=== PATIENT | female | born 1945 | race Caucasian/White ===

== ENCOUNTER 2020-12-05 12:25 | Inpatient (IN) | payer OTHER ==
[~2020-12-05] VITALS: Ht 160 cm; Wt 78.3 kg
[2020-12-05] VITALS (233 sets, daily range): BP systolic 93–123; BP diastolic 74–90; PULSE 125–141; TEMP 97.8–98.3; O2SAT 88–100
[~2020-12-05 12:25] MED LIST: ATIVAN 1MG T1 MG/TAB PO; BUSPAR DIVIDOSE15 MG PO; CYMBALTA 60MG60 MG PO; DESYREL 100MG100 MG PO; ENABLEX 7.5MG7.5 MG PO; EXELON9.5 MG/24 TD; NEURONTIN300 MG/CAP PO; NORVASC 5MG5 MG/TAB PO; OXYCONTIN 10MG10 MG PO; PROVIGIL200 MG PO; REQUIP XL2 MG PO; ULTRAM 50MG TAB50 MG PO
--- NOTE | 2020-12-05 14:00 | NUR ---
RECEIVED REPORT FROM LUNA STRICKLAND AT [facility]. AWATING ARRIVLA OF PT TO ICU 8.
--- NOTE | 2020-12-05 14:53 | NUR ---
PT ARRIVES VIA EMS ON STRETCHER ON 4L VIA NC. HR NOTED 110-170s. PT ASSISTED TO ICU BED. PLACED ON BEDSIDE CONTINUOUS MONITOR. CALL LIGHT WITHIN REACH. FC PATENT AND DRAINING TO GRAVITY.
--- NOTE | 2020-12-05 15:03 | NUR ---
NOTIFIED DR DALE OF PT'S ARRIVAL AND CURRENT HR. PHYSICIAN STATES TO SWITCH OVER TO AMIO GTT AND GIVE BOLUS, SEE MAR. PT EDUCATED ON MEDICATION. VERBALIZED UNDERSTANDING AND AGRESS TO TREATMENT PLAN.
--- NOTE | 2020-12-05 15:25 | NUR ---
DR DALE AT BEDSIDE FOR ASSESSMENT. NEW ORDERS RECEIVED.
--- NOTE | 2020-12-05 15:35 | NUR ---
DR ALEJANDRE AT BEDSIDE FOR ASSESSMENT. PADMA, WITH US, PERFORMING ECHO AT BEDSIDE AND ASSESSED BY DR ALEJANDRE. PT'S DAUGHTER BROUGHT TO BEDSIDE. DAUGHTER CONCERN ABOUT AMIO D/T GRANDSON WHO IS IN [employer] STATES TO NOT LET PT BE ON IT BECAUSE OF BAD SOIL TESTER AFFECTS. DR DALE AND Jade ALEJANDRE AWARE OF FAMILY'S CONCERN. DAUGHTER APPEARS TO CALM DOWN AFTER EXPLAINATION BY DR ALEJANDRE.
[2020-12-05 16:00] LABS: MAGNESIUM 2.2 mg/dL (1.6-2.3)
[2020-12-05] MEDS ORDERED: RESTASIS MULTI5.5 ML OP (16:09)
[2020-12-05] MEDS ORDERED: ULTRAM 50MG TAB50 MG PO (16:10)
[2020-12-05] MEDS ORDERED: PLAVIX 75MG TAB75 MG PO (16:10)
[2020-12-05] MEDS ORDERED: CADUET 5 MG-201 TAB PO (16:12)
[2020-12-05] MEDS ORDERED: CELEBREX 1100 MG/CAP PO (16:12)
[2020-12-05 16:13] LABS: TROPONIN-I < 0.012 ng/mL (0.000-0.035)
[2020-12-05] MEDS ORDERED: CYMBALTA 30MG30 MG PO (16:13)
[2020-12-05] MEDS ORDERED: DITROPAN 5MG TAB5 MG PO (16:14)
[2020-12-05] MEDS ORDERED: ASPIRIN 81M81 MG/TA2 PO (16:15)
[2020-12-05] MEDS ORDERED: SYNTHROID 0.0.025 MG PO (16:15)
[2020-12-05] MEDS ORDERED: LEVOXYL0.025 MG PO (16:16)
[2020-12-05] MEDS ORDERED: CENTRUM SILVER1 TAB PO (16:17)
[2020-12-05] MEDS ORDERED: CITRACAL + D CA1 TAB PO (16:18)
[2020-12-05] MEDS ORDERED: TYLENOL PM EXTR1 TA1 PO (16:19)
[2020-12-05] MEDS ORDERED: ROXICODONE 55 MG/TAB PO (16:19)
[2020-12-05] MEDS ORDERED: MIRALAX PA17 GM/Dose PO (16:20)
[2020-12-05] MEDS ORDERED: BENEFIBER PO (16:21)
--- NOTE | 2020-12-05 18:14 | NUR ---
CALLED KING CUMMINS TO ASK ABOUT PT EATING TONIGHT AND PT'S CURRENT HR 110-150. PROVIDER REQUESTS RN TO CALL DR ALEJANDRE TO ENSURE HIS POC. PAGED DR ALEJANDRE AWAITING RESPONSE.
--- NOTE | 2020-12-05 18:55 | NUR ---
ATTEMPTED TO PAGE DR ALEJANDRE AGAIN. AWAITING FOR RESPONSE STILL.
--- NOTE | 2020-12-05 19:00 | NUR ---
Received report from LUNA Veras.
--- NOTE | 2020-12-05 19:15 | NUR ---
Patient resting quietly in bed watching television. Patient's HR ranging 130-150s; remains in AFIB. Other vitals within normal limits. Patient denies any pain, discomfort, or shortness of breath. Patient states she becomes more short of breath with movement or activity. Requesting something to eat/drink at this time. Will contact Dr. Reardon for further orders. No other needs noted.
--- NOTE | 2020-12-05 19:45 | NUR ---
Paged Dr. Reardon at 193. Received callback at 1940. Dr. Reardon notified of patient's HR ranging 130s-150s in AFIB. Patient requesting something to eat at this time. Received orders to administer an additional 150mg amiodarone bolus now, and then to continue drip at 1mg/min throughout the night. To notify if patient's HR sustains above 150. Patient allowed to eat supper, but should remain NPO after midnight.
[2020-12-06] VITALS (1332 sets, daily range): BP systolic 109–130; BP diastolic 70–91; PULSE 71–129; TEMP 97.7–98.3; O2SAT 84–100
[2020-12-06 05:28] LABS: BASO # 0.1 (0.0-0.2); BASO % 0.9 % (0.0-2.0); EOS % 0.1 % (0-4.0); GRAN # 4.6 (1.4-6.5); GRAN % 62.1 % (42.2-75.2); HEMATOCRIT 37.3 % (37.0-47.0); HEMOGLOBIN 12.4 g/dl (12.5-16.0); LYMPH # 2.2 (1.2-3.4); LYMPH % 29.2 % (20.0-51.0); MEAN CELL VOLUME 91 fl (80.0-100.0); MEAN CORPUSCULAR HEMOGLOBIN 30 pg (27.0-31.0); MEAN CORPUSCULAR HGB CONC 33 g/dl (33.0-37.0); MEAN PLATELET VOLUME 10.5 fl (7.4-10.4); MONO # 0.6 (0.1-0.6); MONO % 7.4 % (1.7-9.3); PLATELET COUNT 230 K/mm3 (130-400); RED BLOOD COUNT 4.12 M/mm3 (4.10-5.30); REDCELL DISTRIBUTION WIDTH-CV 13.2 % (11.5-14.5)
[2020-12-06 05:40] LABS: ANION GAP 7 mmol/L (7-16); BLOOD UREA NITROGEN 17 mg/dL (7-17); CALCIUM 8.7 mg/dL (8.4-10.2); CARBON DIOXIDE 28 mmol/L (22-30); CHLORIDE 103 mmol/L (98-107); CREATININE, serum 0.99 (0.52-1.25); GLUCOSE 113 mg/dL (74-106); MAGNESIUM 2.1 mg/dL (1.6-2.3); POTASSIUM 3.8 mmol/L (3.4-5.0); SODIUM 138 mmol/L (137-145)
[2020-12-06 05:51] LABS: TROPONIN-I < 0.012 ng/mL (0.000-0.035)
--- NOTE | 2020-12-06 10:50 | NUR ---
1050- Time out performed with Dr. Marie, anesthesia, game technician and RN. ARDEN and cardioversion performed with all bed side.
--- NOTE | 2020-12-06 12:38 | NUR ---
Clinical Field Specialist prayed and offered support with patient while family was in room.
[2020-12-07] VITALS (1314 sets, daily range): BP systolic 123–143; BP diastolic 62–101; PULSE 96–117; TEMP 98–98.7; O2SAT 76–100
--- NOTE | 2020-12-07 09:40 | NUR ---
Patient had an episode of emesis after eating breakast. Patient stated her stomach started to feel upset immediately after eating. PRN order for Zofran received from hospitalist. Will continue to monitor.
--- NOTE | 2020-12-07 14:23 | NUR ---
Resting in bed; no concerns or complaints at this time.
--- NOTE | 2020-12-07 17:37 | NUR ---
Patient reports "not feeling well" states that she feels dizzy and lightheaded. BP and 02 WNL. Heart rate in the low 100's which has been unchanged this shift. Has PRN xanax for anxiety. Asked patient if she felt this could be due to anxiety. Patient stated "possibly" and requested to try the xanax. Will continue to monitor.
--- NOTE | 2020-12-07 18:57 | NUR ---
Report given to LUNA Marquez. Patient care transfered.
[2020-12-08] VITALS (1179 sets, daily range): BP systolic 91–131; BP diastolic 66–97; PULSE 79–118; TEMP 97.2–98.7; O2SAT 67–100
[2020-12-08 06:19] LABS: CALCIUM 9.2 mg/dL (8.4-10.2); CREATININE, serum 0.91 (0.52-1.25); POTASSIUM 4.1 mmol/L (3.4-5.0)
--- NOTE | 2020-12-08 07:45 | NUR ---
Resting in bed at this time. Denies any pain or dizziness or lightheadedness this morning. Reports some anxiety about the scheduled heart cath today but refused offer for prn anti-anxiety medication. Patient stable at this time; will continue to monitor.
--- NOTE | 2020-12-08 10:16 | NUR ---
SW met with the patient, her daughter (Donna Ortega, ph#[phone]), and granddaughter (Maryellen) to discuss discharge plan. The patient lives in [place] with her , Romeo (ph#[phone]). She reports independence with ADLs and has a cane and walker available if needed. The patient's primary care provider is Katherine Edgar NP in [place] and she receives her medications from [facility]. She reports no difficulties obtaining her meds. The patient's daughter provided SW with her DPOA-HC. SW placed the document in the patient's chart. The patient's DPOA-HC is her . The alternate is her daughter, Donna Ortega. The patient plans to return home with her upon discharge. SW follow as needed. *Discharge plan: home with and family support*
--- NOTE | 2020-12-08 12:04 | NUR ---
First visit from the patrol captain. No needs right now.
--- NOTE | 2020-12-08 13:08 | NUR ---
Patient is on lasix and has had decreased urine output. Hospitalist notified and ordered to hold lasix dose for tomorrow. Will continue to monitor.
--- NOTE | 2020-12-08 13:31 | NUR ---
Transfered from Department to the cath lab technologist with LUNA Ritter. Patient stable upon transfer.
--- NOTE | 2020-12-08 14:45 | NUR ---
Patient stable after returning from heart cath. Slightly drowsy but awake and alert. Radial site assessed; intact with no hemoatoma formation noted. Will continue to monitor.
--- NOTE | 2020-12-08 17:17 | NUR ---
Patient reporting some mid sternal chest "heaviness". Does not appear in any distress; VS stable. Difficult to obtain a clear answer from patient but states it is a 5 or 6 out of 10 but "not that bad". PRN nitro administered with partial resolution and pain down to 3 or 4. Patient denied offer for second nitro or PRN tylenol. Currenlty eating dinner. Will continue to monitor.
[2020-12-09] VITALS (515 sets, daily range): BP systolic 98–140; BP diastolic 26–80; PULSE 45–114; TEMP 97.2–98.1; O2SAT 79–100
--- NOTE | 2020-12-09 01:10 | NUR ---
NOTIFIED VIA DANILO, TELEMETRY REGARDING A 5 SECOND FOLLOWED BY A 2 SECOND PAUSE. BRADYCARDIC FOLLOWING FOR A MINUTE OR 2. WILL NOTIFY KING BENTLEY.
--- NOTE | 2020-12-09 04:12 | NUR ---
NOTICED PATIENT DROP INTO THE 30s AGAIN. WENT IN TO ASSESS PATIENT. SHE STATED THAT SHE WAS JUST SLEEPY AND VERY TIRED. ALSO STATED A HEAVY FEELING IN THE CHEST AND SOME SOB ON EXERTION. CALLED KING BENTLEY TO NOTIFY AND CALLED RESPIRATORY THERAPY TO GET A STAT EKG. ORDERS RECEIVED FOR ATROPINE. GAVE 2 DOSES AND HR CAME UP TO 50s AND SUSTAINED. HAVE 3RD DOSE ON STANDBY NEEDED.
[2020-12-09 06:06] LABS: CALCIUM 9.1 mg/dL (8.4-10.2); CREATININE, serum 1.01 (0.52-1.25); MAGNESIUM 2.5 mg/dL (1.6-2.3); POTASSIUM 4.1 mmol/L (3.4-5.0)
--- NOTE | 2020-12-09 07:10 | NUR ---
RECEIVED REPORT FROM LUNA MURPHY. PT TEARFUL AT THIS TIME, SEE MAR. ATTEMPTED TO HELP TP CALM, SHE DOES BRIEFLY. FC PATENT AND DRAINING TO GRAVITY. CALL LIGHT WITHIN REACH. VSS. HR 49.
--- NOTE | 2020-12-09 08:20 | NUR ---
DR ALEJANDRE AT BEDSIDE FOR ASSESSMENT. NOTIFIED PHYSICIAN OF DIGOXIN LEVEL, X2 DOSES OF ATROPINE LAST NIGHT, HR CONTINUES TO BE IN THE 40s AND APPEARS JUNCTIONAL, PT VERY DROWSY, AND PT'S C/O LEGS "CRAMPY" FEELING. PHYSICIAN STATES HOLD ALL AM MEDS AND NPO AT THIS TIME FOR POSSIBLE PACEMAKER TODAY. PHYSICIAN MADE AWARE THAT PT DID ALREAADY EAT SOME BREAKFAST. PHYSICIAN STATES IT IS OK BUT TO MAKE NPO STARTING NOW. PT MADE AWARE.
--- NOTE | 2020-12-09 08:50 | NUR ---
DR ALEJANDRE BACK AT BEDSIDE DISCUSSING PACEMAKER PLACEMENT WITH PT. PT MOSTLY AAOX3 BUT APPEARS VERY DROWSY AND NEEDS REDIRECTION OCCASSIONALLY. NOTIFIED DHEERAJ WHO IS FIRST DPOA OF PROCEDURE BY PHYSICIAN AND RN. CONSENT SIGNED.
--- NOTE | 2020-12-09 09:15 | NUR ---
PT TO CATH PROCEDURE AT THIS TIME.
--- NOTE | 2020-12-09 09:50 | NUR ---
SEE MERGE DOCUMENTATION FOR MEDICATION ADMINISTRATION TIMES AND INTRA/POST PROCEDURE SEDATION ASSESSMENTS.
--- NOTE | 2020-12-09 10:30 | NUR ---
REPORT GIVEN TO LUNA DELEON. ALL BELONGINGS TAKEN TO [facility] ALONG WITH FAMILY WAITING IN THE ICU WAITING ROOM. LUNA FOWLER IN HYDRAULIC SPINNER AWARE PT IS TRANSFERRING STRAIGHT TO [facility] AFTER PROCEDURE.
[2020-12-10] VITALS (7 sets, daily range): BP systolic 82–139; BP diastolic 45–85; PULSE 61–77; TEMP 97.5–99.1
--- NOTE | 2020-12-10 07:00 | NUR ---
Report with LUNA Meraz. Pt resting in bed, assisted with boosting up highter in the bed, grimacing with movement. Pt A&O x 3. Dressing over left chest site CDI. No needs reported. Call light in reach.
[2020-12-10 07:01] LABS: BASO # 0.1 (0.0-0.2); BASO % 0.4 % (0.0-2.0); GRAN # 12.4 (1.4-6.5); GRAN % 78.9 % (42.2-75.2); LYMPH # 1.8 (1.2-3.4); LYMPH % 11.4 % (20.0-51.0); MEAN CELL VOLUME 87 fl (80.0-100.0); MEAN CORPUSCULAR HGB CONC 35 g/dl (33.0-37.0); MEAN PLATELET VOLUME 10.7 fl (7.4-10.4); MONO # 1.4 (0.1-0.6); MONO % 8.7 % (1.7-9.3); PLATELET COUNT 238 K/mm3 (130-400); RED BLOOD COUNT 3.09 M/mm3 (4.10-5.30); REDCELL DISTRIBUTION WIDTH-CV 13.6 % (11.5-14.5)
[2020-12-10 07:04] LABS: HEMATOCRIT 26.8 % (37.0-47.0); HEMOGLOBIN 9.3 g/dl (12.5-16.0); MEAN CORPUSCULAR HEMOGLOBIN 30 pg (27.0-31.0)
[2020-12-10 07:13] LABS: CALCIUM 8.6 mg/dL (8.4-10.2); CREATININE, serum 1.52 (0.52-1.25); POTASSIUM 4.5 mmol/L (3.4-5.0)
--- NOTE | 2020-12-10 08:30 | NUR ---
Assessment complete, unremarkable and unchanged from time of report. Pt reports pain is controlled at this time. Saline lock IV to right AC patent without s/s of complications. Pt's daughter at bedside. No further needs reported. Call light in reach.
--- NOTE | 2020-12-10 10:30 | NUR ---
PT reports to nurse pt c/o dizziness when standing. BP assessed with positive orthostatic hypotension present. Provider has already been notified.
[2020-12-10 12:36] LABS: MUCOUS Present /lpf; PH 5 (5-8); SQUAMOUS EPITHELIAL 0-2 /hpf; URINE APPEARANCE Cloudy; URINE BACTERIA Rare /hpf; URINE BILIRUBIN Negative (NEGATIVE); URINE BLOOD Negative (NEGATIVE); URINE COLOR Amber; URINE GLUCOSE Negative (NEGATIVE); URINE KETONE Negative (NEGATIVE); URINE LEUKOCYTE ESTERASE 1+ (NEGATIVE); URINE NITRATE Negative (NEGATIVE); URINE PROTEIN(semi-quant) Negative (NEGATIVE); URINE UROBILINOGEN Negative (NEGATIVE)
[2020-12-10 12:38] LABS: COLLECTION METHOD CLEAN CATCH
[2020-12-10 13:02] LABS: TSH w REFLEX 5.23 uIU/mL (0.465-4.680)
[2020-12-10 14:39] LABS: HEMATOCRIT 22.9 % (37.0-47.0)
--- NOTE | 2020-12-10 16:43 | NUR ---
Lead Quality Control Technician attended clinical rounds with the team. Speech consult to be ordered. SW followed up with patient after rounds and her daughter, Donna is at bedside. SW discussed home health and it's benefits, however patient feels she does not need HH services at this time. Patient's daughter asked for a note from Hospitalist for her employer. SW provided note which advised patient was hospitalized and the admission date.
--- NOTE | 2020-12-10 17:30 | NUR ---
Pt resting in bed, reports discomfort across chest and soreness in shoulder, refuses medication at this time d/t wanting to wait for bedtime. Ice pack offered and pt agreeable and appreciative of ice pack over pacemaker site. Pt's family at bedside with questions which are answered to the best of this nurse's ability. Call light in reach.
--- NOTE | 2020-12-10 19:25 | NUR ---
Report to LUNA Hickey.
[2020-12-11] VITALS (9 sets, daily range): BP systolic 96–138; BP diastolic 41–78; PULSE 59–67; TEMP 97.8–98.7
--- NOTE | 2020-12-11 01:04 | NUR ---
Patient assessed around 2125. Alert and oriented x 4, but does get confused at this time. Reported level 4 pain to pacemaker site. Given scheduled Ultram. Peripheral IV to right AC with fluids running per orders. Denies having SOB and dyspnea. LS CTA. Respirations even and unlabored. HRR. Telemetry in place. Dressing to left chest from pacemaker site is CDI. Capillary refill less than 3 seconds. Non-tenting skin turgor. BSAx4. Abdomen soft and non-tender. No edema. Voices no questions, needs, or concerns at this time. Reminded that she is to be NPO after midnight for EGD tomorrow. Voiced understanding. Resting in bed with call light within reach.
--- NOTE | 2020-12-11 06:23 | NUR ---
Patient received PRN Xanax and Roxicodone for pain and anxiety once this shift. When she had woken up, patient was yelling out in pain and anxious. Talked to patient for while and repositioned, then offered medication. Medication was effecive. IV fluids continue per orders. Voices no questions, needs, or concerns at this time. Resting in bed with call light within reach.
[2020-12-11 06:42] LABS: CALCIUM 8.1 mg/dL (8.4-10.2); CREATININE, serum 1.49 (0.52-1.25); POTASSIUM 4.5 mmol/L (3.4-5.0)
[2020-12-11 07:12] LABS: MEAN CELL VOLUME 87 fl (80.0-100.0); MEAN CORPUSCULAR HGB CONC 36 g/dl (33.0-37.0); MEAN PLATELET VOLUME 10.7 fl (7.4-10.4); PLATELET COUNT 166 K/mm3 (130-400); RED BLOOD COUNT 2.22 M/mm3 (4.10-5.30); REDCELL DISTRIBUTION WIDTH-CV 14.2 % (11.5-14.5)
[2020-12-11 07:15] LABS: HEMATOCRIT 19.4 % (37.0-47.0); MEAN CORPUSCULAR HEMOGLOBIN 31 pg (27.0-31.0)
[2020-12-11 07:21] LABS: HEMOGLOBIN 6.9 g/dl (12.5-16.0)
--- NOTE | 2020-12-11 09:14 | NUR ---
Pt awake and alert upon entry to room, family in room. Steel Post Installer Supervisor C/O pain at this time. Shift assessments complete, left Pt call light in reach, bed in lowest position, needs met.
[2020-12-11 14:25] LABS: MUCOUS Present /lpf; SQUAMOUS EPITHELIAL 0-2 /hpf; URINE BACTERIA None Seen /hpf
[2020-12-11 21:11] LABS: HEMATOCRIT 22.5 % (37.0-47.0); HEMOGLOBIN 7.8 g/dl (12.5-16.0)
[2020-12-11 22:32] LABS: PH 6 (5-8); URINE APPEARANCE Hazy; URINE BACTERIA Rare /hpf; URINE BILIRUBIN Negative (NEGATIVE); URINE BLOOD 2+ (NEGATIVE); URINE COLOR Yellow; URINE GLUCOSE Negative (NEGATIVE); URINE KETONE Negative (NEGATIVE); URINE LEUKOCYTE ESTERASE 3+ (NEGATIVE); URINE NITRATE Negative (NEGATIVE); URINE PROTEIN(semi-quant) Negative (NEGATIVE); URINE UROBILINOGEN Negative (NEGATIVE)
[2020-12-11 22:42] LABS: COLLECTION METHOD CLEAN CATCH
[2020-12-12 00:18] VITALS: BP 126/41; PULSE 63; TEMP 97.9
--- NOTE | 2020-12-12 00:20 | NUR ---
Patient assessed around 1909. Blood transfusion completed at that time, and tolerated well. Complaining of level 9 pain to bladder. Given scheduled Ultram at that time. Family in with patient and voiced concerns regarding patient having confusion at night and being far away from nurse's station. Also concerned that patient will bell to go to the bathroom and not wait for help and fall. Patient moved from room 352 to room 313, closer to nurse's station. High fall risk precuations remain in place. Peripheral INT to right AC leaking, and taken out. INT to left AC flushed. Fluids running per orders and site is without redness, warmth, swelling, and pain. Denies having SOB and dyspnea. LS CTA. Respirations even and unlabored. On oxygen at 1 L/min via NC. HRR. Telemetry in place. Capillary refill less than 3 seconds. Non-tenting skin turgor. BSAx4. Abdomen soft and non-tender. No edema. Patient on bowel prep, tolerating well. Did receive PRN Zofran once. Stools watery, but not clear yet. Family very concerned regarding pain to bladder. Called ACETONE RECOVERY WORKER. Order for Ditropan, and to D/C tyler. Took out tyler. Also given PRN Roxicodone with Ditropan. Patient at this time is denying having pain and discomfort. Has been able to void, and new UA taken to lab. Patient resting in bed with call light within reach.
[2020-12-12 05:11] VITALS: BP 133/50; PULSE 59; TEMP 97.3
--- NOTE | 2020-12-12 05:36 | NUR ---
Patient has been getting up to have BMs throughout the night. Has drank all of the bowel prep, but stools continue to be liqud but not clear at this time. Was complaining of severe pain to left pacemaker/shoulder site. Given PRN Roxicodone and ice to area, which was not effective. Given PRN Fentanyl for pain, which was effective. Voices no questions, needs, or concerns at this time. Resting in bed with call light within reach.
[2020-12-12 08:24] VITALS: BP 137/45; PULSE 61; TEMP 98.1
--- NOTE | 2020-12-12 08:28 | NUR ---
Pt sleeping upon entry to room easily awakened, has C/O pain on left side. checked area noted and found large fresh bruising on left side of breast, area warm and tender to touch. shift assessments complete, left Pt call light in reach, bed in lowest position.
[2020-12-12 12:39] VITALS: BP 115/43; PULSE 59; TEMP 97.9
[2020-12-12 13:03] LABS: HEMATOCRIT 21.1 % (37.0-47.0); HEMOGLOBIN 7.1 g/dl (12.5-16.0)
[2020-12-12 13:57] LABS: IRON,SERUM 47 ug/dL (35-150)
[2020-12-12 14:06] LABS: TOTAL IRON BINDING CAPACITY 301 ug/dL (265-497)
[2020-12-12 16:06] VITALS: BP 107/75; PULSE 63; TEMP 98.1
--- NOTE | 2020-12-12 16:14 | NUR ---
Automobile Service Station Mechanic met with patient and her family to review discharge planning. SW reviewed OT recommendation for post acute rehab. Patient does not want to go anywhere for rehab, however is open to Home Health services. Patient would like to use [facility]. If [facility] cannot take, [facility] would be second preference. CAMMY contacted [facility] and faxed referral. CAMMY was advised by staff at [facility] that they serve patient's address. Discharge Plan: Home with [facility]
[2020-12-12 19:56] VITALS: BP 125/42; PULSE 60; TEMP 98.7
[2020-12-13 00:32] VITALS: BP 107/44; PULSE 61; TEMP 98.4
[2020-12-13 04:57] VITALS: BP 124/64; PULSE 87; TEMP 98.3
--- NOTE | 2020-12-13 05:31 | NUR ---
PATIENT HAD QUIET NIGHT, UP TO BR X1, AWAKE FOR MEDICATIONS. BRUISE UNDER L ARMPIT AND DOWN L SIDE SEEMS TO CAUSE PATIENR A LOT OF PAIN. ROXICODONE GIVEN 3 TIMES THIS SHIFT AT 1940, 0016 AND 0520. NO OTHER NEEDS OR CONCERNS VOICED THIS SHIFT.
[2020-12-13 06:33] LABS: BASO % 0.5 % (0.0-2.0); EOS % 0.2 % (0-4.0); GRAN # 4.8 (1.4-6.5); GRAN % 71.5 % (42.2-75.2); LYMPH # 1.1 (1.2-3.4); LYMPH % 17.2 % (20.0-51.0); MEAN CORPUSCULAR HGB CONC 34 g/dl (33.0-37.0); MONO # 0.7 (0.1-0.6); MONO % 9.8 % (1.7-9.3); PLATELET COUNT 137 K/mm3 (130-400); RED BLOOD COUNT 2.23 M/mm3 (4.10-5.30); REDCELL DISTRIBUTION WIDTH-CV 15.5 % (11.5-14.5)
[2020-12-13 06:41] LABS: HEMATOCRIT 20.9 % (37.0-47.0); MEAN CELL VOLUME 94 fl (80.0-100.0); MEAN CORPUSCULAR HEMOGLOBIN 31 pg (27.0-31.0)
[2020-12-13 06:51] LABS: ALBUMIN 2.7 gm/dL (3.5-5.0); BILIRUBIN,TOTAL 1.2 mg/dL (0.0-1.0); CALCIUM 7.5 mg/dL (8.4-10.2); CREATININE, serum 0.82 (0.52-1.25); POTASSIUM 3.4 mmol/L (3.4-5.0); TOTAL PROTEIN 5.4 gm/dL (6.4-8.2)
--- NOTE | 2020-12-13 07:10 | NUR ---
Patient lying awake in bed at this time. Patient denies any pain, discomfort, or needs at this time. Patient states that the roxycodone she recieved earlier in the day has helped rid her of pain. Will continue to monitor. Call light glen morin. Fall precautions in place.
[2020-12-13 07:59] VITALS: BP 81/55; PULSE 91; TEMP 98.4
--- NOTE | 2020-12-13 09:26 | NUR ---
Patient blood pressure, 81/55, KING Lynch notified. Instructed to hold Toprol. Will continue to monitor.
--- NOTE | 2020-12-13 10:33 | NUR ---
Scheduled meds given. Assessment performed. Dr. Degroot in to see patient, ultrasound ordered to determine source of bleeding. Fluid bolus of 500 ml NS given for BP 81/55. Patient given PRN roxycodone for back pain. Patient denies any further discomfort or needs. Will continue to monitor. Call light within reach. Fall precautions in place.
[2020-12-13 11:30] VITALS: BP 115/61; PULSE 86; TEMP 98.7
--- NOTE | 2020-12-13 11:45 | NUR ---
Patient given a 500 ml fluid bolus of NS for low blood pressure. After bolus, BP 115/61. Will continue to monitor. Call light within reach. Fall precautions in place.
[2020-12-13 15:30] VITALS: BP 114/55; PULSE 82; TEMP 98.6
--- NOTE | 2020-12-13 15:39 | NUR ---
Patient resting in bed at this time. Family at bedside. Patient given roxycodone for back pain. Patient denies any other pain, discomfort, or needs at this time. Scheduled meds given. Will continue to monitor. Call light within reach. Fall precautions in place.
[2020-12-13 16:25] LABS: HEMOGLOBIN 6.8 g/dl (12.5-16.0)
[2020-12-13 16:26] LABS: HEMATOCRIT 20.7 % (37.0-47.0)
--- NOTE | 2020-12-13 16:32 | NUR ---
Critical Hgb level of 6.8 called up from the lab. Information relayed to KING Lynch.
--- NOTE | 2020-12-13 18:29 | NUR ---
Patient resting in bed at this time. Family at the bedside. Discussed results of ultrasound with patient and family. Informed them that HGB had fallen to 6.8 and that lab will redraw in the morning. Still need stool occult on patient. Family informed me that she is unable to have a BM without miralax. KING Mark notified. Patient requested tylenol pm for sleep aide KING Mark notified. Deedee to order miralax and melatonin. Patient denies any pain, discomfort, or further needs at this time. Will continue to monitor. Call light within reach. Fall precautions in place.
--- NOTE | 2020-12-13 20:00 | NUR ---
Report received, assumed care for awake overnight monitor. Assessment complete. VS stable. A&Ox3. Denies pain/nausea. Short of breath with activity. O2@1L/NC with sats in the mid 90s. Denies chest pain/palpitations. Noted to have bruising to right side ecchymosis noted from previous fall. NS@75mls/hr to left AC-infusing without difficulty. States she hasnt had a bowel movement but is refusing miralax until AM. Plan of care discussed for this shift to include HS meds/neuros/calling for questions/concerns. Verbalizes understanding/denies current needs. Call light in reach. Will monitor.
[2020-12-13 21:58] VITALS: BP 139/67; PULSE 88; TEMP 98.7
--- NOTE | 2020-12-13 22:00 | NUR ---
Oxycodone one tab given per dr order for pain in right flank-described as constant ache. Will continue to monitor.
[2020-12-14 01:20] VITALS: BP 126/46; PULSE 62; TEMP 98.3
--- NOTE | 2020-12-14 03:37 | NUR ---
Orders clarified with NICK Mark on IV fluid order and Potassium level from AM. New orders received and initiated.
--- NOTE | 2020-12-14 03:45 | NUR ---
Lab notified of need for lab draws.
[2020-12-14 03:49] VITALS: BP 119/56; PULSE 92; TEMP 98.6
[2020-12-14 04:02] LABS: HEMATOCRIT 21.8 % (37.0-47.0); HEMOGLOBIN 7.2 g/dl (12.5-16.0); MEAN CELL VOLUME 94 fl (80.0-100.0); MEAN CORPUSCULAR HEMOGLOBIN 31 pg (27.0-31.0); MEAN CORPUSCULAR HGB CONC 33 g/dl (33.0-37.0); MEAN PLATELET VOLUME 10.1 fl (7.4-10.4); PLATELET COUNT 152 K/mm3 (130-400); RED BLOOD COUNT 2.32 M/mm3 (4.10-5.30); REDCELL DISTRIBUTION WIDTH-CV 16.4 % (11.5-14.5)
--- NOTE | 2020-12-14 04:03 | NUR ---
Called stating her back was starting to hurt on the right side-rating pain 6/10-described as constant ache with intermittent throbbing. Oxycodone given per dr quinones.
[2020-12-14 04:13] LABS: CALCIUM 7.8 mg/dL (8.4-10.2); CREATININE, serum 0.89 (0.52-1.25); POTASSIUM 3.4 mmol/L (3.4-5.0)
--- NOTE | 2020-12-14 06:53 | NUR ---
Patient lying awake in bed at this time. Patient denies any pain, discomfort, or further needs at this time. O2 running a 1L via nasal cannula. Will continue to monitor. Call light within reach. Fall precautions in place.
[2020-12-14 08:00] VITALS: BP 115/81; PULSE 81; TEMP 98.5
[2020-12-14] MEDS ORDERED: AMOXICILLIN 8751 TAB PO (09:23)
[2020-12-14] MEDS ORDERED: FERROUSAL325 MG PO (09:23)
[2020-12-14] MEDS ORDERED: LIPITOR20 MG PO (09:28)
[2020-12-14] MEDS ORDERED: TOPROL XL 50MG50 MG PO (09:32)
[2020-12-14] MEDS ORDERED: CORDARONE200 MG/TAB PO (09:32)
[2020-12-14] MEDS ORDERED: FLORINEF ACETA0.1 MG PO (09:33)
[2020-12-14] MEDS ORDERED: LEVOXYL0.137 MG PO (09:34)
[2020-12-14] MEDS ORDERED: B-121000 MCG PO (09:35)
[2020-12-14] MEDS ORDERED: ELIQUIS 5MG PO (09:36)
--- NOTE | 2020-12-14 10:11 | NUR ---
Scheduled medications given. Assessment performed. Lungs clear in all mcgee. Pulses +2 bilaterally. Patient does not C/O any pain, discomfort, SOA, or N/V. O2 running at 1L via nasal cannula. Miralax given. VSS. IV fluids D/C'd. Patient will be discharging per Dr. Degroot's orders. Will continue to monitor. Call light within reach. Fall precatutions in place.
--- NOTE | 2020-12-14 10:55 | NUR ---
Discharge education/instructions given. Questions and concerns answered. Pharmacy filled prescriptions for patient, meds given to patient. IV D/C'd catheter intact, no signs of phlebitis. Patient denies any pain, discomfort, SOA, or futher needs at this time. VSS. Will continue to monitor patient until they leave. Call light within reach. Fall precautions in place.
--- NOTE | 2020-12-14 11:01 | NUR ---
Patient escorted from the building by [facility] Staff via wheel chair.
--- NOTE | 2020-12-14 12:34 | NUR ---
SW was informed that patient would be discharging today 12/14/2020. CAMMY obtained discharge orders and faxed to [facility]. CAMMY called [facility] staff member to inform patient would be discharging on this day. Staff member provided they would give patient a call on 12/15/20. CAMMY informed patient that the agency would be givine them a call. Nothing further.
== END 2020-12-14 11:02 | disposition home health service (06) | DRG 242 ==
LOC: MEDICAL 12:25 → ICU 15:19 → MEDICAL 12-09 10:26
PROVIDERS: Family Medicine; Hospitalist; Internal Medicine; Internal Medicine Cardiovascular Disease; Nurse Practitioner Family; Physician Assistant; ADMIT Internal Medicine
PROC: B2111ZZ Fluoroscopy of Multiple Coronary Arteries using Low Osmolar Contrast (ICD-10-PCS; 2020-12-08)
PROC: 4A023N7 Measurement of Cardiac Sampling and Pressure, Left Heart, Percutaneous Approach (ICD-10-PCS; 2020-12-08)
PROC: 5A2204Z Restoration of Cardiac Rhythm, Single (ICD-10-PCS; 2020-12-08)
PROC: 0JH606Z Insertion of Pacemaker, Dual Chamber into Chest Subcutaneous Tissue and Fascia, Open Approach (ICD-10-PCS; principal; 2020-12-10)
PROC: 02H63JZ Insertion of Pacemaker Lead into Right Atrium, Percutaneous Approach (ICD-10-PCS; 2020-12-10)
PROC: 02HK3JZ Insertion of Pacemaker Lead into Right Ventricle, Percutaneous Approach (ICD-10-PCS; 2020-12-10)
PROC: 02HL3JZ Insertion of Pacemaker Lead into Left Ventricle, Percutaneous Approach (ICD-10-PCS; 2020-12-10)
PROC: 0DJ08ZZ Inspection of Upper Intestinal Tract, Via Natural or Artificial Opening Endoscopic (ICD-10-PCS; 2020-12-11)
PROC: 0DJD8ZZ Inspection of Lower Intestinal Tract, Via Natural or Artificial Opening Endoscopic (ICD-10-PCS; 2020-12-12)
DX: I49.5 Sick sinus syndrome (principal); I50.21 Acute systolic (congestive) heart failure; G93.40 Encephalopathy, unspecified; D62 Acute posthemorrhagic anemia; G81.94 Hemiplegia, unspecified affecting left nondominant side; N39.0 Urinary tract infection, site not specified; E87.1 Hypo-osmolality and hyponatremia; I48.0 Paroxysmal atrial fibrillation; E03.9 Hypothyroidism, unspecified; E78.5 Hyperlipidemia, unspecified; F32.9 Major depressive disorder, single episode, unspecified; F03.90 Unspecified dementia, unspecified severity, without behavioral disturbance, psychotic disturbance, mood disturbance, and anxiety; Z66 Do not resuscitate; I11.0 Hypertensive heart disease with heart failure; I50.9 Heart failure, unspecified; G47.33 Obstructive sleep apnea (adult) (pediatric); I95.1 Orthostatic hypotension; M79.81 Nontraumatic hematoma of soft tissue; I27.20 Pulmonary hypertension, unspecified; I08.1 Rheumatic disorders of both mitral and tricuspid valves; E86.0 Dehydration; K29.70 Gastritis, unspecified, without bleeding; G47.00 Insomnia, unspecified; E53.8 Deficiency of other specified B group vitamins; I44.7 Left bundle-branch block, unspecified; R94.31 Abnormal electrocardiogram [ECG] [EKG]; B95.2 Enterococcus as the cause of diseases classified elsewhere; K57.30 Diverticulosis of large intestine without perforation or abscess without bleeding; D72.829 Elevated white blood cell count, unspecified; Z85.3 Personal history of malignant neoplasm of breast; Z86.73 Personal history of transient ischemic attack (TIA), and cerebral infarction without residual deficits; Z85.038 Personal history of other malignant neoplasm of large intestine; Z79.891 Long term (current) use of opiate analgesic; Z79.02 Long term (current) use of antithrombotics/antiplatelets; Z79.82 Long term (current) use of aspirin; Z88.2 Allergy status to sulfonamides; Z88.6 Allergy status to analgesic agent; Z88.1 Allergy status to other antibiotic agents
CPT/HCPCS: 99223-AI; 99232-AI; 99233-AI; C1769; C1894; C1898; C1900; C2621; C9113; J0282; J0461; J0696; J1160; J1644; J1650; J2250; J2405; J2704; J3010; J3370; J3420; J3475; J7030; J7040; J7050; J7060; P9016; Q9967

== ENCOUNTER → 2023-10-05 | Outpatient (CLI) | payer MEDICARE, OTHER ==
[~2023-10-05] MED LIST changes: +AMOXICILLIN 8751 TAB PO; +ASPIRIN 81M81 MG/TA2 PO; +Albuterol 0.083% Neb Soln 2.5 MG/3 ML UD IH ONE; +B-121000 MCG PO; +BENEFIBER PO; +CADUET 5 MG-201 TAB PO; +CELEBREX 1100 MG/CAP PO; +CENTRUM SILVER1 TAB PO; +CITRACAL + D CA1 TAB PO; +CORDARONE200 MG/TAB PO; +CYMBALTA 30MG30 MG PO; +DITROPAN 5MG TAB5 MG PO; +ELIQUIS 5MG PO; +FERROUSAL325 MG PO; +FLORINEF ACETA0.1 MG PO; +LEVOXYL0.025 MG PO; +LEVOXYL0.137 MG PO; +LIPITOR20 MG PO; +MIRALAX PA17 GM/Dose PO; +PLAVIX 75MG TAB75 MG PO; +RESTASIS MULTI5.5 ML OP; +ROXICODONE 55 MG/TAB PO; +SYNTHROID 0.0.025 MG PO; +TOPROL XL 50MG50 MG PO; +TYLENOL PM EXTR1 TA1 PO
== END ==
LOC: COL.CARD 12:56
DX: J96.11 Chronic respiratory failure with hypoxia (principal)